=== PATIENT | female | born 1965 | race Two or more races ===

== ENCOUNTER 2017-04-13 01:31 | Inpatient (IN) | payer OTHER ==
[2017-04-13] MEDS: ASPIRIN ENTERIC COATED 325 MG TABLET.DR. PO (02:07)
[2017-04-13] MEDS: NITROGLYCERIN SUBLINGUAL 0.4 MG BOTTLE OF 25. SL (02:08)
[2017-04-13 02:17] LABS: ADD MAN DIFF? NO
[2017-04-13 02:22] LABS: BASO # 0.1 x10^3/uL (0.0-0.2); BASO % 1 % (0-3); EOS % 11 % (0-3); HEMATOCRIT 39.3 % (36.0-47.0); HEMOGLOBIN 12.7 g/dL (12.0-15.5); LYMPH # 4.1 x10^3/uL (1.0-4.8); LYMPH % 42 % (24-48); MEAN CORPUSCULAR HEMOGLOBIN 26 pg (25-35); MEAN CORPUSCULAR HGB CONC 32 g/dL (31-37); MEAN CORPUSCULAR VOLUME 81 fL (79-100); MONO # 0.9 x10^3/uL (0.0-1.1); MONO % 10 % (0-9); NEUT # 3.7 x10^3uL (1.8-7.7); NEUT % 37 % (31-73); PLATELET COUNT 309 x10^3/uL (140-400); RED BLOOD COUNT 4.84 x10^6/uL (3.50-5.40); RED CELL DISTRIBUTION WIDTH 15.3 % (11.5-14.5); WHITE BLOOD COUNT 9.9 x10^3/uL (4.0-11.0)
[2017-04-13 02:34] LABS: ANION GAP 9 (6-14); BLOOD UREA NITROGEN 7 mg/dL (7-20); BUN/CREATININE RATIO 10 (6-20); CALCIUM 9.3 mg/dL (8.5-10.1); CARBON DIOXIDE 28 mmol/L (21-32); CHLORIDE 102 mmol/L (98-107); CREATININE 0.7 mg/dL (0.6-1.0); GFR 88.6; GLUCOSE 101 mg/dL (70-99); POTASSIUM 3.6 mmol/L (3.5-5.1); SODIUM 139 mmol/L (136-145)
[2017-04-13 02:37] LABS: PARTIAL THROMBOPLASTIN TIME 25 SEC (24-38); PROTHROMBIN TIME PATIENT 12.3 SEC (11.7-14.0)
[2017-04-13 02:40] LABS: ALBUMIN 4.1 g/dL (3.4-5.0); ALK PHOS 136 U/L (46-116); ALT (SGPT) 29 U/L (14-59); AST (SGOT) 26 U/L (15-37); LIPASE 251 U/L (73-393); MAGNESIUM 2.2 mg/dL (1.8-2.4); TOTAL BILIRUBIN 0.2 mg/dL (0.2-1.0); TOTAL PROTEIN 8.1 g/dL (6.4-8.2)
[2017-04-13 02:46] LABS: NT-PRO BNP 29 pg/mL (0-124)
[2017-04-13 02:47] LABS: D-DIMER < 0.27 ug/mlFEU (0.00-0.50)
[2017-04-13 02:48] LABS: TROPONINI < 0.017 ng/mL (0.000-0.055)
[2017-04-13] MEDS ORDERED: ONDANSETRON PF 4 MG/2 ML VIAL. IV ×2 (03:30→08:45)
[2017-04-13] MEDS ORDERED: fentaNYL PF VIAL 100 MCG/2 ML VIAL IV (03:30)
[2017-04-13] MEDS: ONDANSETRON PF 4 MG/2 ML VIAL. IV (03:40)
[2017-04-13] MEDS: fentaNYL PF VIAL 100 MCG/2 ML VIAL IV (03:40)
[2017-04-13] MEDS ORDERED: ACETAMINOPHEN 500 MG TABLET PO (08:45)
[2017-04-13] MEDS: PANTOPRAZOLE 40 MG TABLET.DR. PO (09:51)
[2017-04-13 10:06] LABS: TROPONINI < 0.017 ng/mL (0.000-0.055)
[2017-04-13 11:19] LABS: CHOLESTEROL 168 mg/dL (0-200); HDLC 49 mg/dL (40-60); LDLC 84 mg/dL (0-100); NON-HDL CHOLESTEROL 119 mg/dL (0-129); TRIGLYCERIDES 173 mg/dL (0-150); VLDLC 35 mg/dL (0-40)
[2017-04-13 11:20] LABS: CHOLESTEROL/HDL RATIO 3.4
[2017-04-13 16:24] LABS: TROPONINI < 0.017 ng/mL (0.000-0.055)
== END 2017-04-13 19:00 | disposition home or self-care (01) | DRG 392 ==
LOC: ER 01:31 → 5 NORTH 02:55
DX: K21.9 Gastro-esophageal reflux disease without esophagitis (principal); E78.5 Hyperlipidemia, unspecified; R07.9 Chest pain, unspecified; G43.909 Migraine, unspecified, not intractable, without status migrainosus; I10 Essential (primary) hypertension; M19.90 Unspecified osteoarthritis, unspecified site; Z82.49 Family history of ischemic heart disease and other diseases of the circulatory system
CPT/HCPCS: 36415; 71045; 78452; 80053; 80061; 83690; 83735; 83880; 84484; 85025; 85379; 85610; 85730; 93005; 93017; 93306; 96374; 96375; 96376; 99285-25; A9500; J2405; J3010

== ENCOUNTER → 2017-05-12 | Outpatient (CLI) | payer OTHER | END | disposition home or self-care (01) | LOC: KCIC US 11:13 | DX: D25.9 Leiomyoma of uterus, unspecified (principal); N85.4 Malposition of uterus | CPT/HCPCS: 76830; 76856 ==

== ENCOUNTER 2017-06-25 08:13 | Observation (INO) | payer OTHER ==
[~2017-06-25 08:13] MED LIST: LIDOCAINE 1% PF 2 ML VIAL. ID; MORPHINE SULFATE 4 MG/ML DISP.SYRIN. IV; PROCHLORPERAZINE 10 MG/2 ML VIAL. IV; fentaNYL PF VIAL 100 MCG/2 ML VIAL IV
[2017-06-25] MEDS: IV RINGERS,LACTATED 1000ML 1,000 ML IV ×2 (08:48→21:26)
[2017-06-25 08:54] LABS: ADD MAN DIFF? NO
[2017-06-25 08:55] LABS: BASO # 0.1 x10^3/uL (0.0-0.2); BASO % 1 % (0-3); EOS # 0.7 x10^3/uL (0.0-0.7); EOS % 9 % (0-3); HEMATOCRIT 40.3 % (36.0-47.0); HEMOGLOBIN 13.2 g/dL (12.0-15.5); LYMPH # 2.3 x10^3/uL (1.0-4.8); LYMPH % 32 % (24-48); MEAN CORPUSCULAR HEMOGLOBIN 27 pg (25-35); MEAN CORPUSCULAR HGB CONC 33 g/dL (31-37); MEAN CORPUSCULAR VOLUME 81 fL (79-100); MONO # 0.6 x10^3/uL (0.0-1.1); MONO % 8 % (0-9); NEUT # 3.8 x10^3uL (1.8-7.7); NEUT % 51 % (31-73); PLATELET COUNT 246 x10^3/uL (140-400); RED BLOOD COUNT 4.95 x10^6/uL (3.50-5.40); RED CELL DISTRIBUTION WIDTH 16.4 % (11.5-14.5); WHITE BLOOD COUNT 7.4 x10^3/uL (4.0-11.0)
[2017-06-25] MEDS ORDERED: ESTROGENS, CONJ VAGINAL CREAM 30GM TUBE. (09:00)
[2017-06-25] MEDS ORDERED: IOHEXOL 300 MG/ML 100ML VIAL. (09:00)
[2017-06-25] MEDS ORDERED: LIDOCAINE 1% 20 ML VIAL. (09:00)
[2017-06-25] MEDS ORDERED: MIDAZOLAM HCL/PF 2 MG/2 ML VIAL. (09:23)
[2017-06-25] MEDS ORDERED: ROCURONIUM 100 MG/10 ML VIAL. (09:23)
[2017-06-25] MEDS ORDERED: NEOSTIGMINE METHYLSULFATE 5 MG/5 ML SYRINGE. (09:23)
[2017-06-25] MEDS ORDERED: fentaNYL PF VIAL 100 MCG/2 ML VIAL ×3 (09:23→13:06)
[2017-06-25] MEDS ORDERED: PROPOFOL 20 ML IV (09:24)
[2017-06-25] MEDS ORDERED: PHENYLEPHRINE in 0.9% NACL PF 1 MG/10 ML SYRINGE. IV (09:24)
[2017-06-25] MEDS ORDERED: DEXAMETHASONE SOD PHOS 20 MG/5 ML VIAL. (09:24)
[2017-06-25] MEDS ORDERED: LIDOCAINE 1% PF 5 ML VIAL. (09:24)
[2017-06-25] MEDS ORDERED: diphenhydrAMINE 50 MG/ML VIAL (09:24)
[2017-06-25] MEDS ORDERED: KETOROLAC 30 MG/ML INJ FOR OR. INJ (09:24)
[2017-06-25] MEDS ORDERED: GLYCOPYRROLATE 1 MG/5 ML VIAL. (09:24)
[2017-06-25] MEDS ORDERED: ONDANSETRON PF 4 MG/2 ML VIAL. (09:24)
[2017-06-25] MEDS ORDERED: FAMOTIDINE 20 MG/2 ML VIAL (09:24)
[2017-06-25] MEDS ORDERED: LIDOCAINE 2% PF Vial for OR 5 ML VIAL. (09:29)
[2017-06-25] MEDS ORDERED: KETAMINE HCL 500 MG/10 ML VIAL. (10:29)
[2017-06-25] MEDS ORDERED: LIDOCAINE 1%/EPI 1:100,000 20 ML VIAL. (10:45)
[2017-06-25] MEDS: LIDOCAINE 1%/EPI 1:100,000 20 ML VIAL. ×3 (11:05→12:04)
[2017-06-25] MEDS ORDERED: ceFAZolin 2GM PREMIX 2 GM/50 ML BAG IV (12:00)
[2017-06-25] MEDS: ESTROGENS, CONJ VAGINAL CREAM 30GM TUBE. VG (12:05)
[2017-06-25] MEDS ORDERED: SEVOFLURANE 61 TO 120 MINUTES. IH (12:16)
[2017-06-25] MEDS ORDERED: diphenhydrAMINE 50 MG/ML VIAL IV (12:45)
[2017-06-25] MEDS ORDERED: ZOLPIDEM 5 MG TABLET. PO (12:45)
[2017-06-25] MEDS ORDERED: PROCHLORPERAZINE 10 MG/2 ML VIAL. IV (12:45)
[2017-06-25] MEDS ORDERED: 0.9 % SODIUM CHLORIDE 10 ML DISP.SYRIN. IV (12:45)
[2017-06-25] MEDS ORDERED: SIMETHICONE 80 MG TAB.CHEW PO (12:45)
[2017-06-25] MEDS ORDERED: DEXTROSE 50% 25 GM / 50ML DISP.SYRIN. IV (12:45)
[2017-06-25] MEDS ORDERED: CALCIUM CARBONATE 500 MG TAB.CHEW PO (12:45)
[2017-06-25] MEDS ORDERED: diphenhydrAMINE HCL 25 MG CAPSULE PO (12:45)
[2017-06-25] MEDS ORDERED: ONDANSETRON PF 4 MG/2 ML VIAL. IV (12:45)
[2017-06-25] MEDS: fentaNYL PF VIAL 100 MCG/2 ML VIAL IV ×3 (13:11→15:13)
[2017-06-25] MEDS: oxyCODONE/APAP 5/325 1 TAB TABLET PO (17:06)
[2017-06-25] MEDS: KETOROLAC 30 MG/ML INJ. IV (18:34)
[2017-06-25] MEDS: ONDANSETRON PF 4 MG/2 ML VIAL. IV (20:10)
[2017-06-25] MEDS: GABAPENTIN 300 MG CAPSULE. PO ×2 (20:43→22:00)
[2017-06-26] MEDS: KETOROLAC 30 MG/ML INJ. IV (00:42)
[2017-06-26 04:56] LABS: ADD MAN DIFF? NO
[2017-06-26 05:00] LABS: BASO % 0 % (0-3); EOS % 0 % (0-3); HEMATOCRIT 34.3 % (36.0-47.0); HEMOGLOBIN 11.4 g/dL (12.0-15.5); LYMPH % 9 % (24-48); MEAN CORPUSCULAR HEMOGLOBIN 27 pg (25-35); MEAN CORPUSCULAR HGB CONC 33 g/dL (31-37); MEAN CORPUSCULAR VOLUME 82 fL (79-100); MONO # 0.8 x10^3/uL (0.0-1.1); MONO % 7 % (0-9); NEUT # 9.3 x10^3uL (1.8-7.7); NEUT % 84 % (31-73); PLATELET COUNT 237 x10^3/uL (140-400); RED BLOOD COUNT 4.19 x10^6/uL (3.50-5.40); RED CELL DISTRIBUTION WIDTH 15.9 % (11.5-14.5); WHITE BLOOD COUNT 11.1 x10^3/uL (4.0-11.0)
[2017-06-26] MEDS: GABAPENTIN 300 MG CAPSULE. PO ×2 (06:03→14:00)
[2017-06-26] MEDS: oxyCODONE/APAP 5/325 1 TAB TABLET PO ×3 (06:04→14:33)
== END 2017-06-26 20:35 | disposition home or self-care (01) ==
LOC: SURG 08:13 → 3 NORTH 12:32
DX: D25.9 Leiomyoma of uterus, unspecified (principal); N39.3 Stress incontinence (female) (male); N81.3 Complete uterovaginal prolapse; N84.0 Polyp of corpus uteri; N80.0 Endometriosis of uterus
CPT/HCPCS: 36415; 85025; 86850; 86900; 86901; 88309; 96374; 96375; 96376; A7015; G0378; G0379; J0690; J1100; J1200; J1885; J2250; J2370; J2405; J2704; J2710; J3010; J3490; J7030; J7120; Q9967; S0028

== ENCOUNTER 2017-06-29 23:11 | Emergency (ER) | payer OTHER | END 2017-06-29 23:50 | disposition home or self-care (01) | LOC: ER 23:50 | DX: K59.03 Drug induced constipation (principal); T40.2X5A Adverse effect of other opioids, initial encounter; K21.9 Gastro-esophageal reflux disease without esophagitis; Y92.89 Other specified places as the place of occurrence of the external cause | CPT/HCPCS: 99283 ==

== ENCOUNTER 2019-12-18 13:49 | Inpatient (IN) | payer OTHER ==
[~2019-12-18] VITALS: Ht 160 cm; Wt 73.0 kg
[~2019-12-18 13:49] MED LIST changes: +AMOX500C PO; +DOCU-109 PO; +IBUP-1060 PO; -LIDOCAINE 1% PF 2 ML VIAL. ID; +MAGN296S68 PO; -MORPHINE SULFATE 4 MG/ML DISP.SYRIN. IV; +NA P133E2 RC; +OXYC1TAB7 PO; +PANT20TA2 PO; +POLY17PO29 PO; -PROCHLORPERAZINE 10 MG/2 ML VIAL. IV; -fentaNYL PF VIAL 100 MCG/2 ML VIAL IV
[2019-12-18 14:33] LABS: BILIRUBIN,URINE NEGATIVE (NEG); CLARITY,URINE CLEAR; COLOR,URINE YELLOW; NITRITE,URINE NEGATIVE (NEG); PROTEIN,URINE NEGATIVE (NEG-TRACE); UROBILINOGEN,URINE 0.2 mg/dL (0.2 mg/dL)
[2019-12-18 14:45] LABS: BACTERIA,URINE FEW /HPF (0-FEW); WBC,URINE >40 /HPF (0-4)
[2019-12-18 14:46] LABS: RBC,URINE OCC /HPF (0-2)
[2019-12-18 14:52] LABS: BASO % 0 % (0-3); EOS # 0.1 x10^3/uL (0.0-0.7); EOS % 1 % (0-3); HEMOGLOBIN 13.4 g/dL (12.0-15.5); LYMPH # 1.2 x10^3/uL (1.0-4.8); LYMPH % 13 % (24-48); MEAN CORPUSCULAR HEMOGLOBIN 30 pg (25-35); MEAN CORPUSCULAR HGB CONC 34 g/dL (31-37); MEAN CORPUSCULAR VOLUME 88 fL (79-100); MONO # 0.7 x10^3/uL (0.0-1.1); MONO % 7 % (0-9); NEUT # 7.2 x10^3/uL (1.8-7.7); NEUT % 78 % (31-73); PLATELET COUNT 263 x10^3/uL (140-400); RED BLOOD COUNT 4.42 x10^6/uL (3.50-5.40); RED CELL DISTRIBUTION WIDTH 15.5 % (11.5-14.5); WHITE BLOOD COUNT 9.3 x10^3/uL (4.0-11.0)
--- NOTE | 2019-12-18 14:59 | PHYS DOC ---
Past Medical History Past Medical History: GERD Past Surgical History: Other Additional Past Surgical Histo: HERNIA REPAIR Smoking Status: Never Smoker Alcohol Use: None Drug Use: None General Adult EDM: Chief Complaint: ABDOMINAL PAIN HPI: HPI: History obtained from patient. Son was uses customer greeter at bedside with permission from patient. Patient is a 51-year-old female past medical history significant for dyspepsia, rheumatoid arthritis who presents with chief compla int of epigastric pain. States pain started suddenly 4 hours prior to arrival. States pain is sharp and radiates through to her back. She states that she has not been able to eat food today. She notes multiple episodes of nonbloody nonbilious emesis. Does note a history of hysterectomy. States she is had occasional discomfort with eating food in the past. Denies any known history of gallbladder issues. Denies chest pain or shortness breath. Denies syncope. Denies fevers. Denies any urinary symptoms including dysuria, hematuria, or increased urge to void. Denies low back pain. Denies vaginal bleeding or discharge. No other complaints. Review of Systems: Review of Systems: Constitutional: Denies fever or chills. [] Eyes: Denies change in visual acuity. [] HENT: Denies nasal congestion or sore throat. [] Respiratory: Denies cough or shortness of breath. [] Cardiovascular: Denies chest pain or edema. [] GI: Positive for abdominal pain and vomiting : Denies dysuria. [] Musculoskeletal: Denies back pain or joint pain. [] Integument: Denies rash. [] Neurologic: Denies headache, focal weakness or sensory changes. [] Endocrine: Denies polyuria or polydipsia. [] Lymphatic: Denies swollen glands. [] Psychiatric: Denies depression or anxiety. [] Heart Score: Risk Factors: Risk Factors: DM, Current or recent (<one month) smoker, HTN, HLP, family history of CAD, obesity. Risk Scores: Score 0 - 3: 2.5% MACE over next 6 weeks - Discharge Home Score 4 - 6: 20.3% MACE over next 6 weeks - Admit for Clinical Observation Score 7 - 10: 72.7% MACE over next 6 weeks - Early Invasive Strategies Current Medications: Current Medications Medications (Trade) Dose Ordered Sig/Gary Start Time Stop Time Status Last Admin Dose Admin Famotidine (Pepcid Vial) 20 mg 1X ONCE 12/18/19 15:00 12/18/19 15:01 Morphine Sulfate (Morphine Sulfate) 4 mg 1X ONCE 12/18/19 15:00 12/18/19 15:01 Ondansetron HCl (Zofran) 4 mg 1X ONCE 12/18/19 15:00 12/18/19 15:01 Allergies: Allergies: Allergies Coded Allergies Type Severity Reaction Last Updated Verified No Known Drug Allergies 06/25/17 No Physical Exam: PE: Constitutional: Appears uncomfortable HENT: Normocephalic, atraumatic, bilateral external ears normal, oropharynx moist, no oral exudates, nose normal. [] Eyes: PERRLA, EOMI, conjunctiva normal, no discharge. [] Neck: Normal range of motion, no tenderness, supple, no stridor. [] Cardiovascular:Heart rate regular rhythm, no murmur [] Lungs & Thorax: Bilateral breath sounds clear to auscultation [] Abdomen: Moderate reproducible right upper quadrant epigastric tenderness to palpation. Skin: Warm, dry, no erythema, no rash. [] Back: No tenderness, no CVA tenderness. [] Extremities: No tenderness, no cyanosis, no clubbing, ROM intact, no edema. [] Neurologic: Alert and oriented X 3, normal motor function, normal sensory function, no focal deficits noted. [] Psychologic: Affect normal, judgement normal, mood normal. [] Current Patient Data: Labs: Laboratory Tests Test 12/18/19 14:00 12/18/19 14:40 Urine Collection Type Unknown Urine Color Yellow Urine Clarity Clear Urine pH 5.0 (<5.0-8.0) Urine Specific [place] 1.020 (1.000-1.030) Urine Protein Negative mg/dL (NEG-TRACE) Urine Glucose (UA) Negative mg/dL (NEG) Urine Ketones (Stick) Negative mg/dL (NEG) Urine Blood Negative (NEG) Urine Nitrite Negative (NEG) Urine Bilirubin Negative (NEG) Urine Urobilinogen Dipstick 0.2 mg/dL (0.2 mg/dL) Urine Leukocyte Esterase Large (NEG) Urine RBC Occ /HPF (0-2) Urine WBC >40 /HPF (0-4) Urine Bacteria Few /HPF (0-FEW) Urine Mucus Mod /LPF White Blood Count 9.3 x10^3/uL (4.0-11.0) Red Blood Count 4.42 x10^6/uL (3.50-5.40) Hemoglobin 13.4 g/dL (12.0-15.5) Hematocrit 39.0 % (36.0-47.0) Mean Corpuscular Volume 88 fL (79-100) Mean Corpuscular Hemoglobin 30 pg (25-35) Mean Corpuscular Hemoglobin Concent 34 g/dL (31-37) Red Cell Distribution Width 15.5 % (11.5-14.5) H Platelet Count 263 x10^3/uL (140-400) Neutrophils (%) (Auto) 78 % (31-73) H Lymphocytes (%) (Auto) 13 % (24-48) L Monocytes (%) (Auto) 7 % (0-9) Eosinophils (%) (Auto) 1 % (0-3) Basophils (%) (Auto) 0 % (0-3) Neutrophils # (Auto) 7.2 x10^3/uL (1.8-7.7) Lymphocytes # (Auto) 1.2 x10^3/uL (1.0-4.8) Monocytes # (Auto) 0.7 x10^3/uL (0.0-1.1) Eosinophils # (Auto) 0.1 x10^3/uL (0.0-0.7) Basophils # (Auto) 0.0 x10^3/uL (0.0-0.2) Laboratory Tests 12/18/19 14:40 EKG: EKG: [] Radiology/Procedures: Radiology/Procedures: [facility] [address] [place] [address] IMAGING REPORT Signed PATIENT: JOVANY RAMONCOUNT: [id number] : 1965 LOCATION: ER AGE: 54 SEX: F EXAM STATUS: REG ER ORD. PHYSICIAN: COLLEEN GILMAN DO REASON: RUQ pain; Nausea/Vomitting PROCEDURE: ABDOMEN LTD ABDOMEN LTD INDICATION: Reason: RUQ pain; Nausea/Vomitting / Spl. Instructions: / History: COMPARISON: None. TECHNIQUE: Limited transverse and longitudinal grayscale images of the right upper quadrant with color and pulsed doppler utilized as appropriate. FINDINGS: The liver demonstrates normal echogenicity without focal lesions. The liver measures 14.1 cm. The portal vein is patent with normal antegrade flow. Well-distended gallbladder with multiple prominent gallstones. No wall thickening or pericholecystic fluid. Sonographic Leon's sign is reported as present. No intrahepatic or extrahepatic biliary dilatation. The common bile duct measures 0.3 cm. The visualized portions of the pancreas demonstrate normal echogenicity without focal lesions. The right kidney has normal echogenicity and measures 9.3 cm. No hydronephrosis, shadowing stones or suspicious masses seen. No ascites or fluid collections. The aorta and IVC are normal diameter where visualized. IMPRESSION: Well-distended gallbladder with multiple gallstones. Although the sonographic Leon's sign is reported as present, there is no wall thickening or pericholecystic fluid. Correlate with laboratory values. Normal caliber common bile duct. Electronically signed by: Chetan Krueger MD (12/18/2019 3:28 PM) [facility] DICTATED and SIGNED BY: CHETAN KRUEGER MD DATE: 12/18/19 1528 [] Course & Med Decision Making: Course & Med Decision Making Pertinent Labs and Imaging studies reviewed. (See chart for details) [] Patient is a 54-year-old female who presents with chief complaint of epi gastric and right upper quadrant abdominal discomfort. Imaging does reveal a distended gallbladder with multiple gallstones. No signs of pericholecystic fluid or gallbladder wall thickening. Common bile duct also measures normal. Positive Leon sign sonographically. Labs do not show leukocytosis or elevated LFTs. However, patient does appear significantly uncomfortable. She is likely experiencing severe symptomatic cholelithiasis. I do feel she would benefit from hospitalization for further pain and nausea control as well as potential surgical evaluation for cholecystectomy. Patient agreeable to hospitalization. Json Disclaimer: Shaun Disclaimer: This electronic medical record was generated, in whole or in part, using a voice recognition dictation system. Departure Departure Impression: Primary Impression: Symptomatic cholelithiasis Disposition: ADMITTED INPT THIS HOSP Condition: STABLE Referrals: NO PCP (PCP) COLLEEN GILMAN DO Dec 18, 2019 14:58
[2019-12-18] MEDS ORDERED: FAMOTIDINE 20 MG/2 ML VIAL IVP ONE (15:00)
[2019-12-18] MEDS ORDERED: ONDANSETRON PF 4 MG/2 ML VIAL. IVP ONE (15:00)
[2019-12-18] MEDS ORDERED: MORPHINE SULFATE 4 MG/ML VIAL. IV ONE (15:00)
[2019-12-18 15:04] LABS: CALCIUM 9.1 mg/dL (8.5-10.1); CREATININE 0.9 mg/dL (0.6-1.0); GFR 65.5; POTASSIUM 3.9 mmol/L (3.5-5.1)
[2019-12-18 15:10] LABS: ALBUMIN 4.1 g/dL (3.4-5.0); ALBUMIN/GLOBULIN RATIO 1.1 (1.0-1.7); TOTAL BILIRUBIN 0.4 mg/dL (0.2-1.0); TOTAL PROTEIN 7.8 g/dL (6.4-8.2)
[2019-12-18] MEDS ORDERED: ceFAZolin SODIUM IV Push 1 GM VIAL. IVP ONE (15:15)
[2019-12-18] MEDS ORDERED: HYDROmorphone 2 MG/ML VIAL IV ONE (15:30)
--- NOTE | 2019-12-18 15:31 | RAD ---
ABDOMEN LTD INDICATION: Reason: RUQ pain; Nausea/Vomitting / Spl. Instructions: / History: COMPARISON: None. TECHNIQUE: Limited transverse and longitudinal grayscale images of the right upper quadrant with color and pulsed doppler utilized as appropriate. FINDINGS: The liver demonstrates normal echogenicity without focal lesions. The liver measures 14.1 cm. The portal vein is patent with normal antegrade flow. Well-distended gallbladder with multiple prominent gallstones. No wall thickening or pericholecystic fluid. Sonographic Leon's sign is reported as present. No intrahepatic or extrahepatic biliary dilatation. The common bile duct measures 0.3 cm. The visualized portions of the pancreas demonstrate normal echogenicity without focal lesions. The right kidney has normal echogenicity and measures 9.3 cm. No hydronephrosis, shadowing stones or suspicious masses seen. No ascites or fluid collections. The aorta and IVC are normal diameter where visualized. IMPRESSION: Well-distended gallbladder with multiple gallstones. Although the sonographic Leon's sign is reported as present, there is no wall thickening or pericholecystic fluid. Correlate with laboratory values. Normal caliber common bile duct. Electronically signed by: Frank Krueger MD (12/18/2019 3:28 PM) [facility]
--- NOTE | 2019-12-18 16:13 | PDOC1 ---
History and Physical Date of Admission Date of Admission DATE: 12/18/19 TIME: 16:12 Identification/Chief Complaint Chief Complaint seen in er with symptomatic cholelithiasis 51-year-old female past medical history significant for dyspepsia, rheumatoid arthritis who presents with chief complaint of epigastric pain. States pain started suddenly 4 hours prior to arrival. States pain is sharp and radiates through to her back. has not been able to eat food today. She notes multiple episodes of nonbloody nonbilious emesis. States she is had occasional discomfort with eating fatty food in the past. Denies any known history of gallbladder issues. Denies chest pain or shortness breath. Denies syncope. Denies fevers Past Medical History Cardiovascular: Hyperlipidemia Pulmonary: No pertinent hx CENTRAL NERVOUS SYSTEM: Migraine GI: GERD Heme/Onc: No pertinent hx Hepatobiliary: No pertinent hx Psych: No pertinent hx Musculoskeletal: Osteoarthritis Rheumatologic: No pertinent hx Infectious disease: No pertinent hx Renal/: No pertinent hx Endocrine: No pertinent hx Past Surgical History Past Surgical History: Hernia Repair Family History Family History: Coronary Artery Disease, Hypertension Social History Smoke: No ALCOHOL: none Drugs: None Current Problem List Problem List Problems Medical Problems: (1) Symptomatic cholelithiasis Status: Acute Current Medications Current Medications Current Medications Famotidine (Pepcid Vial) 20 mg 1X ONCE IVP Last administered on 12/18/19at 15:05; Start 12/18/19 at 15:00; Stop 12/18/19 at 15:01; Status DC Morphine Sulfate (Morphine Sulfate) 4 mg 1X ONCE IV Last administered on 12/18/19at 15:05; Start 12/18/19 at 15:00; Stop 12/18/19 at 15:01; Status DC Ondansetron HCl (Zofran) 4 mg 1X ONCE IVP Last administered on 12/18/19at 15:04; Start 12/18/19 at 15:00; Stop 12/18/19 at 15:01; Status DC Cefazolin Sodium (Ancef) 1 gm 1X ONCE IVP Last administered on 12/18/19at 15:51; Start 12/18/19 at 15:15; Stop 12/18/19 at 15:16; Status DC Hydromorphone HCl (Dilaudid) 1 mg 1X ONCE IV Last administered on 12/18/19at 15:51; Start 12/18/19 at 15:30; Stop 12/18/19 at 15:31; Status DC Ondansetron HCl (Zofran) 4 mg PRN Q8HRS PRN IV NAUSEA/VOMITING; Start 12/18/19 at 16:15; Stop 12/19/19 at 16:14 Morphine Sulfate (Morphine Sulfate) 4 mg PRN Q2HR PRN IV PAIN; Start 12/18/19 at 16:15; Stop 12/19/19 at 16:14 Active Scripts Active Miralax (Polyethylene Glycol 3350) 17 Gm Powd.pack 1 Packet PO DAILY Fleet Enema (Na Phos,M-B/Na Phos,Di-Ba) 133 Ml Enema 1 Each RC ONCE Magnesium Citrate 296 Ml Solution 296 Ml PO ONCE Ibuprofen 800 Mg Tablet 800 Mg PO PRN Q6HRS PRN Colace (Docusate Sodium) 100 Mg Capsule 100 Mg PO BID Oxycodone-Acetaminophen 5-325 (Oxycodone Hcl/Acetaminophen) 1 Each Tablet 2 Tab PO PRN Q4HRS PRN Allergies Allergies: Coded Allergies: No Known Drug Allergies (Unverified , 06/25/17) ROS Review of System Constitutional: Denies fever or chills. [] Eyes: Denies change in visual acuity. [] HENT: Denies nasal congestion or sore throat. [] Respiratory: Denies cough or shortness of breath. [] Cardiovascular: Denies chest pain or edema. [] GI: Positive for abdominal pain and vomiting : Denies dysuria. [] Musculoskeletal: Denies back pain or joint pain. [] Integument: Denies rash. [] Neurologic: Denies headache, focal weakness or sensory changes. [] Endocrine: Denies polyuria or polydipsia. [] Lymphatic: Denies swollen glands. [] Psychiatric: Denies depression or anxiety. [] 14 PT ROS OTHERWISE NEG Physical Exam Physical Exam Constitutional: Appears uncomfortable HENT: Normocephalic, atraumatic, bilateral external ears normal, oropharynx moist, no oral exudates, nose normal. [] Eyes: PERRLA, EOMI, conjunctiva normal, no discharge. [] Neck: Normal range of motion, no tenderness, supple, no stridor. [] Cardiovascular:Heart rate regular rhythm, no murmur [] Lungs & Thorax: Bilateral breath sounds clear to auscultation [] Abdomen: Moderate reproducible right upper quadrant epigastric tenderness to palpation. Skin: Warm, dry, no erythema, no rash. [] Back: No tenderness, no CVA tenderness. [] Extremities: No tenderness, no cyanosis, no clubbing, ROM intact, no edema. [] Neurologic: Alert and oriented X 3, normal motor function, normal sensory function, no focal deficits noted. [] Psychologic: Affect normal, judgement normal, mood normal. [] General: Alert, Oriented X3, Cooperative HEENT: Atraumatic, Mucous membr. moist/pink Lungs: Clear to auscultation, Normal air movement Heart: RRR, no gallops Breasts: Not examined Abdomen: No masses Rectal Exam: not examined Extremities: No cyanosis Skin: No significant lesion Neuro: Normal speech, Sensation intact, Cranial nerves 3-12 NL Psych/Mental Status: Mental status NL, Mood NL Labs Labs Laboratory Tests Test 12/18/19 14:00 12/18/19 14:40 Urine Collection Type Unknown Urine Color Yellow Urine Clarity Clear Urine pH 5.0 (<5.0-8.0) Urine Specific [place] 1.020 (1.000-1.030) Urine Protein Negative mg/dL (NEG-TRACE) Urine Glucose (UA) Negative mg/dL (NEG) Urine Ketones (Stick) Negative mg/dL (NEG) Urine Blood Negative (NEG) Urine Nitrite Negative (NEG) Urine Bilirubin Negative (NEG) Urine Urobilinogen Dipstick 0.2 mg/dL (0.2 mg/dL) Urine Leukocyte Esterase Large (NEG) Urine RBC Occ /HPF (0-2) Urine WBC >40 /HPF (0-4) Urine Bacteria Few /HPF (0-FEW) Urine Mucus Mod /LPF White Blood Count 9.3 x10^3/uL (4.0-11.0) Red Blood Count 4.42 x10^6/uL (3.50-5.40) Hemoglobin 13.4 g/dL (12.0-15.5) Hematocrit 39.0 % (36.0-47.0) Mean Corpuscular Volume 88 fL (79-100) Mean Corpuscular Hemoglobin 30 pg (25-35) Mean Corpuscular Hemoglobin Concent 34 g/dL (31-37) Red Cell Distribution Width 15.5 % (11.5-14.5) Platelet Count 263 x10^3/uL (140-400) Neutrophils (%) (Auto) 78 % (31-73) Lymphocytes (%) (Auto) 13 % (24-48) Monocytes (%) (Auto) 7 % (0-9) Eosinophils (%) (Auto) 1 % (0-3) Basophils (%) (Auto) 0 % (0-3) Neutrophils # (Auto) 7.2 x10^3/uL (1.8-7.7) Lymphocytes # (Auto) 1.2 x10^3/uL (1.0-4.8) Monocytes # (Auto) 0.7 x10^3/uL (0.0-1.1) Eosinophils # (Auto) 0.1 x10^3/uL (0.0-0.7) Basophils # (Auto) 0.0 x10^3/uL (0.0-0.2) Sodium Level 140 mmol/L (136-145) Potassium Level 3.9 mmol/L (3.5-5.1) Chloride Level 103 mmol/L (98-107) Carbon Dioxide Level 28 mmol/L (21-32) Anion Gap 9 (6-14) Blood Urea Nitrogen 10 mg/dL (7-20) Creatinine 0.9 mg/dL (0.6-1.0) Estimated GFR (Cockcroft-Gault) 65.5 BUN/Creatinine Ratio 11 (6-20) Glucose Level 118 mg/dL (70-99) Calcium Level 9.1 mg/dL (8.5-10.1) Total Bilirubin 0.4 mg/dL (0.2-1.0) Aspartate Amino Transf (AST/SGOT) 21 U/L (15-37) Alanine Aminotransferase (ALT/SGPT) 26 U/L (14-59) Alkaline Phosphatase 115 U/L (46-116) Total Protein 7.8 g/dL (6.4-8.2) Albumin 4.1 g/dL (3.4-5.0) Albumin/Globulin Ratio 1.1 (1.0-1.7) Lipase 107 U/L (73-393) Laboratory Tests Test 12/18/19 14:00 12/18/19 14:40 Urine Collection Type Unknown Urine Color Yellow Urine Clarity Clear Urine pH 5.0 (<5.0-8.0) Urine Specific [place] 1.020 (1.000-1.030) Urine Protein Negative mg/dL (NEG-TRACE) Urine Glucose (UA) Negative mg/dL (NEG) Urine Ketones (Stick) Negative mg/dL (NEG) Urine Blood Negative (NEG) Urine Nitrite Negative (NEG) Urine Bilirubin Negative (NEG) Urine Urobilinogen Dipstick 0.2 mg/dL (0.2 mg/dL) Urine Leukocyte Esterase Large (NEG) Urine RBC Occ /HPF (0-2) Urine WBC >40 /HPF (0-4) Urine Bacteria Few /HPF (0-FEW) Urine Mucus Mod /LPF White Blood Count 9.3 x10^3/uL (4.0-11.0) Red Blood Count 4.42 x10^6/uL (3.50-5.40) Hemoglobin 13.4 g/dL (12.0-15.5) Hematocrit 39.0 % (36.0-47.0) Mean Corpuscular Volume 88 fL (79-100) Mean Corpuscular Hemoglobin 30 pg (25-35) Mean Corpuscular Hemoglobin Concent 34 g/dL (31-37) Red Cell Distribution Width 15.5 % (11.5-14.5) Platelet Count 263 x10^3/uL (140-400) Neutrophils (%) (Auto) 78 % (31-73) Lymphocytes (%) (Auto) 13 % (24-48) Monocytes (%) (Auto) 7 % (0-9) Eosinophils (%) (Auto) 1 % (0-3) Basophils (%) (Auto) 0 % (0-3) Neutrophils # (Auto) 7.2 x10^3/uL (1.8-7.7) Lymphocytes # (Auto) 1.2 x10^3/uL (1.0-4.8) Monocytes # (Auto) 0.7 x10^3/uL (0.0-1.1) Eosinophils # (Auto) 0.1 x10^3/uL (0.0-0.7) Basophils # (Auto) 0.0 x10^3/uL (0.0-0.2) Sodium Level 140 mmol/L (136-145) Potassium Level 3.9 mmol/L (3.5-5.1) Chloride Level 103 mmol/L (98-107) Carbon Dioxide Level 28 mmol/L (21-32) Anion Gap 9 (6-14) Blood Urea Nitrogen 10 mg/dL (7-20) Creatinine 0.9 mg/dL (0.6-1.0) Estimated GFR (Cockcroft-Gault) 65.5 BUN/Creatinine Ratio 11 (6-20) Glucose Level 118 mg/dL (70-99) Calcium Level 9.1 mg/dL (8.5-10.1) Total Bilirubin 0.4 mg/dL (0.2-1.0) Aspartate Amino Transf (AST/SGOT) 21 U/L (15-37) Alanine Aminotransferase (ALT/SGPT) 26 U/L (14-59) Alkaline Phosphatase 115 U/L (46-116) Total Protein 7.8 g/dL (6.4-8.2) Albumin 4.1 g/dL (3.4-5.0) Albumin/Globulin Ratio 1.1 (1.0-1.7) Lipase 107 U/L (73-393) Images Images ABDOMEN LTD INDICATION: Reason: RUQ pain; Nausea/Vomitting / Spl. Instructions: / History: COMPARISON: None. TECHNIQUE: Limited transverse and longitudinal grayscale images of the right upper quadrant with color and pulsed doppler utilized as appropriate. FINDINGS: The liver demonstrates normal echogenicity without focal lesions. The liver measures 14.1 cm. The portal vein is patent with normal antegrade flow. Well-distended gallbladder with multiple prominent gallstones. No wall thickening or pericholecystic fluid. Sonographic Leon's sign is reported as present. No intrahepatic or extrahepatic biliary dilatation. The common bile duct measures 0.3 cm. The visualized portions of the pancreas demonstrate normal echogenicity without focal lesions. The right kidney has normal echogenicity and measures 9.3 cm. No hydronephrosis, shadowing stones or suspicious masses seen. No ascites or fluid collections. The aorta and IVC are normal diameter where visualized. IMPRESSION: Well-distended gallbladder with multiple gallstones. Although the sonographic Leon's sign is reported as present, there is no wall thickening or pericholecystic fluid. Correlate with laboratory values. Normal caliber common bile duct. Electronically signed by: Chetan Merchant MD (12/18/2019 3:28 PM) [facility] DICTATED and SIGNED BY: CHETAN MERCHANT MD DATE: 12/18/19 1528 VTE Prophylaxis Ordered VTE Prophylaxis Devices: Yes VTE Pharmacological Prophylaxi: Yes Assessment/Plan Assessment/Plan =Impression: Symptomatic cholelithiasis Well-distended gallbladder with multiple gallstones. , sonographic Leon's sign is reported as present, there is no wall thickening or pericholecystic fluid HX HYPERLIPIDEMIA GERD PROBABLE UTI plan ADMITTED npo gen surgery consult iv fluid support iv pain control dvt prophylaxis IV ROCEPHIN 1 GM Q 24 HRS D/W ER Justifications for Admission Other Justification KHADAR ROMERO MD Dec 18, 2019 16:13
[2019-12-18] MEDS ORDERED: MORPHINE SULFATE 4 MG/ML VIAL. IV PRN (16:15)
[2019-12-18] MEDS ORDERED: ONDANSETRON PF 4 MG/2 ML VIAL. IV PRN (16:15)
[2019-12-18] MEDS ORDERED: LORazepam 0.5 MG TABLET PO PRN (17:00)
[2019-12-18] MEDS ORDERED: 0.9 % SODIUM CHLORIDE 10 ML DISP.SYRIN. IV PRN (17:00)
[2019-12-18] MEDS ORDERED: DOCUSATE SODIUM 100 MG CAPSULE. PO PRN (17:00)
[2019-12-18] MEDS ORDERED: ALBUTEROL SULFATE 2.5 MG/3 ML NEBU. NEB PRN (17:00)
[2019-12-18] MEDS ORDERED: ZOLPIDEM 5 MG TABLET. PO PRN (17:00)
[2019-12-18] MEDS ORDERED: guaiFENesin ORAL 200 MG/10 ML LIQUID. PO PRN (17:00)
[2019-12-18] MEDS ORDERED: SODIUM PHOSPHATES 19/7GM 133 ML ENEMA. PR PRN (17:00)
[2019-12-18] MEDS ORDERED: ACETAMINOPHEN 650 MG SUPP.RECT. PR PRN (17:00)
[2019-12-18] MEDS: HYDROmorphone 2 MG/ML VIAL IV PRN (17:56)
[2019-12-18] MEDS: IV NORMAL SALINE 1000ML BAG 1,000 ML IV SCH (17:56)
[2019-12-18] MEDS: ONDANSETRON PF 4 MG/2 ML VIAL. IV PRN (17:56)
--- NOTE | 2019-12-18 18:15 | NUR ---
Patient arrived to room 416 from the ED. Her son is present and will stay to help interpret for service assistant nurse. Patient is sleeping soundly, but can be awakened. IV fluids running.
[2019-12-18 19:30] VITALS: BP 142/79
[2019-12-18] MEDS: cefTRIAXone IV Push 1 GM VIAL. IVP SCH (21:15)
[2019-12-18] MEDS: ENOXAPARIN 40 MG/0.4 ML SYRINGE. SQ SCH (21:17)
[2019-12-18] MEDS: DOCUSATE SODIUM 100 MG CAPSULE. PO SCH (21:25)
[2019-12-18 23:23] VITALS: BP 142/73
[2019-12-19 03:04] VITALS: BP 143/74
[2019-12-19] MEDS: IV NORMAL SALINE 1000ML BAG 1,000 ML IV SCH ×3 (03:34→22:39)
[2019-12-19] MEDS: HYDROmorphone 2 MG/ML VIAL IV PRN ×3 (03:41→22:36)
[2019-12-19 04:41] LABS: BASO % 0 % (0-3); EOS % 0 % (0-3); HEMATOCRIT 37.4 % (36.0-47.0); HEMOGLOBIN 12.5 g/dL (12.0-15.5); LYMPH # 0.9 x10^3/uL (1.0-4.8); LYMPH % 8 % (24-48); MEAN CORPUSCULAR HEMOGLOBIN 30 pg (25-35); MEAN CORPUSCULAR HGB CONC 34 g/dL (31-37); MEAN CORPUSCULAR VOLUME 89 fL (79-100); MONO # 0.7 x10^3/uL (0.0-1.1); MONO % 7 % (0-9); NEUT # 8.7 x10^3/uL (1.8-7.7); NEUT % 84 % (31-73); PLATELET COUNT 249 x10^3/uL (140-400); RED BLOOD COUNT 4.18 x10^6/uL (3.50-5.40); RED CELL DISTRIBUTION WIDTH 15.8 % (11.5-14.5); WHITE BLOOD COUNT 10.4 x10^3/uL (4.0-11.0)
[2019-12-19 04:55] LABS: CALCIUM 8.7 mg/dL (8.5-10.1); CREATININE 0.7 mg/dL (0.6-1.0); GFR 87.5; POTASSIUM 3.7 mmol/L (3.5-5.1)
[2019-12-19] MEDS: ONDANSETRON PF 4 MG/2 ML VIAL. IV PRN ×2 (06:09→19:00)
[2019-12-19 07:00] VITALS: BP 127/73
--- NOTE | 2019-12-19 08:39 | PDOC2 ---
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 Pain was upper abdomen with radiation to her back, up chest. Thought was her acid reflux but had no improvement. Pain is currently improved, but vomiting this AM. No hx of cholelithiasis that patient knows of. No constipation or diarrhea. Past Medical History Cardiovascular: Hyperlipidemia Pulmonary: No pertinent hx CENTRAL NERVOUS SYSTEM: Migraine GI: GERD Heme/Onc: No pertinent hx Hepatobiliary: No pertinent hx Psych: No pertinent hx Musculoskeletal: Osteoarthritis Rheumatologic: Rheumatoid arthritis Infectious disease: No pertinent hx Renal/: No pertinent hx Endocrine: No pertinent hx Past Surgical History Past Surgical History: Hernia Repair, Hysterectomy Family History Family History: Coronary Artery Disease, Hypertension Social History No ALCOHOL: none Drugs: None Current Problem List Problem List Problems Medical Problems: (1) Symptomatic cholelithiasis Status: Acute Current Medications Current Medications Current Medications Famotidine (Pepcid Vial) 20 mg 1X ONCE IVP Last administered on 12/18/19at 15:05; Start 12/18/19 at 15:00; Stop 12/18/19 at 15:01; Status DC Morphine Sulfate (Morphine Sulfate) 4 mg 1X ONCE IV Last administered on 12/18/19at 15:05; Start 12/18/19 at 15:00; Stop 12/18/19 at 15:01; Status DC Ondansetron HCl (Zofran) 4 mg 1X ONCE IVP Last administered on 12/18/19at 15:04; Start 12/18/19 at 15:00; Stop 12/18/19 at 15:01; Status DC Cefazolin Sodium (Ancef) 1 gm 1X ONCE IVP Last administered on 12/18/19at 15:51; Start 12/18/19 at 15:15; Stop 12/18/19 at 15:16; Status DC Hydromorphone HCl (Dilaudid) 1 mg 1X ONCE IV Last administered on 12/18/19at 15:51; Start 12/18/19 at 15:30; Stop 12/18/19 at 15:31; Status DC Ondansetron HCl (Zofran) 4 mg PRN Q8HRS PRN IV NAUSEA/VOMITING; Start 12/18/19 at 16:15; Stop 12/19/19 at 16:14 Morphine Sulfate (Morphine Sulfate) 4 mg PRN Q2HR PRN IV PAIN Last administered on 12/18/19at 21:17; Start 12/18/19 at 16:15; Stop 12/19/19 at 16:14 Sodium Chloride (Normal Saline Flush) 3 ml QSHIFT PRN IV AFTER MEDS AND BLOOD DRAWS; Start 12/18/19 at 17:00 Sodium Chloride 1,000 ml @ 100 mls/hr Q10H IV Last administered on 12/19/19at 03:34; Start 12/18/19 at 16:50 Ondansetron HCl (Zofran) 4 mg PRN Q4HRS PRN IV NAUSEA/VOMITING Last administered on 12/19/19at 06:09; Start 12/18/19 at 17:00 Zolpidem Tartrate (Ambien) 5 mg PRN QHS PRN PO INSOMNIA; Start 12/18/19 at 17:00 Acetaminophen (Tylenol) 650 mg PRN Q4HRS PRN PO TEMP OVER 100.4F OR MILD PAIN; Start 12/18/19 at 17:00 Acetaminophen (Tylenol Supp) 650 mg PRN Q4HRS PRN [place] TEMP OVER 100.4F OR MILD PAIN; Start 12/18/19 at 17:00 Sodium Monofluorophosphate (Fleet Adult) 133 ml PRN DAILY PRN [place] CONSTIPATION; Start 12/18/19 at 17:00 Docusate Sodium (Colace) 100 mg PRN BID PRN PO HARD STOOLS; Start 12/18/19 at 17:00 Albuterol Sulfate (Ventolin Neb Soln) 2.5 mg PRN Q4HRS PRN NEB SHORTNESS OF BREATH; Start 12/18/19 at 17:00 Guaifenesin (Robitussin) 200 mg PRN Q4HRS PRN PO COUGH; Start 12/18/19 at 17:00 Lorazepam (Ativan) 0.5 mg PRN Q4HRS PRN PO ANXIETY / AGITATION; Start 12/18/19 at 17:00 Hydromorphone HCl (Dilaudid) 0.6 mg PRN Q3HRS PRN IV SEVERE PAIN 7-10 Last administered on 12/19/19at 03:41; Start 12/18/19 at 17:00 Enoxaparin Sodium (Lovenox 40mg Syringe) 40 mg Q24H SQ Last administered on 12/18/19at 21:17; Start 12/18/19 at 18:00 Ceftriaxone Sodium (Rocephin) 1 gm Q24H IVP Last administered on 12/18/19at 21:15; Start 12/18/19 at 21:00 Docusate Sodium (Colace) 100 mg BID PO Last administered on 12/18/19at 21:25; Start 12/18/19 at 21:00 Influenza Virus Vaccine Quadrival (Fluzone Quad Syringe) 0.5 ml ONCE ONCE VAX IM ; Start 12/19/19 at 09:00; Stop 12/19/19 at 09:01 Active Scripts Active Miralax (Polyethylene Glycol 3350) 17 Gm Powd.pack 1 Packet PO DAILY Fleet Enema (Na Phos,M-B/Na Phos,Di-Ba) 133 Ml Enema 1 Each RC ONCE Magnesium Citrate 296 Ml Solution 296 Ml PO ONCE Ibuprofen 800 Mg Tablet 800 Mg PO PRN Q6HRS PRN Colace (Docusate Sodium) 100 Mg Capsule 100 Mg PO BID Oxycodone-Acetaminophen 5-325 (Oxycodone Hcl/Acetaminophen) 1 Each Tablet 2 Tab PO PRN Q4HRS PRN Allergies Allergies: Coded Allergies: No Known Drug Allergies (Unverified , 06/25/17) ROS General: No: Chills, Other (fevers) PSYCHOLOGICAL ROS: No: Anxiety, Depression Eyes: No Blurry vision, No Double vision HEENT: No: Heacaches, Sore Throat Hematological and Lymphatic: No: Bleeding Problems, Blood Clots Respiratory: No: Cough, SOB with excertion Cardiovascular: No Chest Pain, No Palpitations Gastrointestinal: Yes Other (see hpi) Genitourinary: No Dysuria, No Hematuria Musculoskeletal: No Joint Pain, No Muscle Pain Neurological: No Impaired Coord/balance, No Numbness/Tingling Skin: No Pruritus, No Rash Physical Exam General: Alert, Oriented X3, Cooperative HEENT: Atraumatic, PERRLA Lungs: Clear to auscultation, Normal air movement Heart: Regular rate, Normal S1, Normal S2 Abdomen: Soft, Other (RUQ TTP) Extremities: No clubbing, No cyanosis Skin: No rashes, No breakdown Neuro: Normal gait, Normal speech Psych/Mental Status: Mental status NL, Mood NL MUSCULOSKELETAL: No deformity, No swelling Vitals VITALS Vital Signs Date Time Temp Pulse Resp B/P (MAP) Pulse Ox O2 Delivery O2 Flow Rate FiO2 12/19/19 07:00 98.5 110 18 127/73 (91) 90 Room Air 98.5 Labs Labs Laboratory Tests Test 12/18/19 14:00 12/18/19 14:40 12/18/19 17:58 12/19/19 03:38 Urine Collection Type Unknown Urine Color Yellow Urine Clarity Clear Urine pH 5.0 (<5.0-8.0) Urine Specific [place] 1.020 (1.000-1.030) Urine Protein Negative mg/dL (NEG-TRACE) Urine Glucose (UA) Negative mg/dL (NEG) Urine Ketones (Stick) Negative mg/dL (NEG) Urine Blood Negative (NEG) Urine Nitrite Negative (NEG) Urine Bilirubin Negative (NEG) Urine Urobilinogen Dipstick 0.2 mg/dL (0.2 mg/dL) Urine Leukocyte Esterase Large (NEG) Urine RBC Occ /HPF (0-2) Urine WBC >40 /HPF (0-4) Urine Bacteria Few /HPF (0-FEW) Urine Mucus Mod /LPF White Blood Count 9.3 x10^3/uL (4.0-11.0) 10.4 x10^3/uL (4.0-11.0) Red Blood Count 4.42 x10^6/uL (3.50-5.40) 4.18 x10^6/uL (3.50-5.40) Hemoglobin 13.4 g/dL (12.0-15.5) 12.5 g/dL (12.0-15.5) Hematocrit 39.0 % (36.0-47.0) 37.4 % (36.0-47.0) Mean Corpuscular Volume 88 fL (79-100) 89 fL (79-100) Mean Corpuscular Hemoglobin 30 pg (25-35) 30 pg (25-35) Mean Corpuscular Hemoglobin Concent 34 g/dL (31-37) 34 g/dL (31-37) Red Cell Distribution Width 15.5 % (11.5-14.5) 15.8 % (11.5-14.5) Platelet Count 263 x10^3/uL (140-400) 249 x10^3/uL (140-400) Neutrophils (%) (Auto) 78 % (31-73) 84 % (31-73) Lymphocytes (%) (Auto) 13 % (24-48) 8 % (24-48) Monocytes (%) (Auto) 7 % (0-9) 7 % (0-9) Eosinophils (%) (Auto) 1 % (0-3) 0 % (0-3) Basophils (%) (Auto) 0 % (0-3) 0 % (0-3) Neutrophils # (Auto) 7.2 x10^3/uL (1.8-7.7) 8.7 x10^3/uL (1.8-7.7) Lymphocytes # (Auto) 1.2 x10^3/uL (1.0-4.8) 0.9 x10^3/uL (1.0-4.8) Monocytes # (Auto) 0.7 x10^3/uL (0.0-1.1) 0.7 x10^3/uL (0.0-1.1) Eosinophils # (Auto) 0.1 x10^3/uL (0.0-0.7) 0.0 x10^3/uL (0.0-0.7) Basophils # (Auto) 0.0 x10^3/uL (0.0-0.2) 0.0 x10^3/uL (0.0-0.2) Sodium Level 140 mmol/L (136-145) Potassium Level 3.9 mmol/L (3.5-5.1) Chloride Level 103 mmol/L (98-107) Carbon Dioxide Level 28 mmol/L (21-32) Anion Gap 9 (6-14) Blood Urea Nitrogen 10 mg/dL (7-20) Creatinine 0.9 mg/dL (0.6-1.0) Estimated GFR (Cockcroft-Gault) 65.5 BUN/Creatinine Ratio 11 (6-20) Glucose Level 118 mg/dL (70-99) Calcium Level 9.1 mg/dL (8.5-10.1) Total Bilirubin 0.4 mg/dL (0.2-1.0) Aspartate Amino Transf (AST/SGOT) 21 U/L (15-37) Alanine Aminotransferase (ALT/SGPT) 26 U/L (14-59) Alkaline Phosphatase 115 U/L (46-116) Total Protein 7.8 g/dL (6.4-8.2) Albumin 4.1 g/dL (3.4-5.0) Albumin/Globulin Ratio 1.1 (1.0-1.7) Lipase 107 U/L (73-393) SARS-CoV-2 Antigen (Rapid) Negative (NEGATIVE) Test 12/19/19 03:58 Sodium Level 140 mmol/L (136-145) Potassium Level 3.7 mmol/L (3.5-5.1) Chloride Level 104 mmol/L (98-107) Carbon Dioxide Level 27 mmol/L (21-32) Anion Gap 9 (6-14) Blood Urea Nitrogen 10 mg/dL (7-20) Creatinine 0.7 mg/dL (0.6-1.0) Estimated GFR (Cockcroft-Gault) 87.5 Glucose Level 119 mg/dL (70-99) Calcium Level 8.7 mg/dL (8.5-10.1) Laboratory Tests Test 12/18/19 14:00 12/18/19 14:40 12/18/19 17:58 12/19/19 03:38 Urine Collection Type Unknown Urine Color Yellow Urine Clarity Clear Urine pH 5.0 (<5.0-8.0) Urine Specific [place] 1.020 (1.000-1.030) Urine Protein Negative mg/dL (NEG-TRACE) Urine Glucose (UA) Negative mg/dL (NEG) Urine Ketones (Stick) Negative mg/dL (NEG) Urine Blood Negative (NEG) Urine Nitrite Negative (NEG) Urine Bilirubin Negative (NEG) Urine Urobilinogen Dipstick 0.2 mg/dL (0.2 mg/dL) Urine Leukocyte Esterase Large (NEG) Urine RBC Occ /HPF (0-2) Urine WBC >40 /HPF (0-4) Urine Bacteria Few /HPF (0-FEW) Urine Mucus Mod /LPF White Blood Count 9.3 x10^3/uL (4.0-11.0) 10.4 x10^3/uL (4.0-11.0) Red Blood Count 4.42 x10^6/uL (3.50-5.40) 4.18 x10^6/uL (3.50-5.40) Hemoglobin 13.4 g/dL (12.0-15.5) 12.5 g/dL (12.0-15.5) Hematocrit 39.0 % (36.0-47.0) 37.4 % (36.0-47.0) Mean Corpuscular Volume 88 fL (79-100) 89 fL (79-100) Mean Corpuscular Hemoglobin 30 pg (25-35) 30 pg (25-35) Mean Corpuscular Hemoglobin Concent 34 g/dL (31-37) 34 g/dL (31-37) Red Cell Distribution Width 15.5 % (11.5-14.5) 15.8 % (11.5-14.5) Platelet Count 263 x10^3/uL (140-400) 249 x10^3/uL (140-400) Neutrophils (%) (Auto) 78 % (31-73) 84 % (31-73) Lymphocytes (%) (Auto) 13 % (24-48) 8 % (24-48) Monocytes (%) (Auto) 7 % (0-9) 7 % (0-9) Eosinophils (%) (Auto) 1 % (0-3) 0 % (0-3) Basophils (%) (Auto) 0 % (0-3) 0 % (0-3) Neutrophils # (Auto) 7.2 x10^3/uL (1.8-7.7) 8.7 x10^3/uL (1.8-7.7) Lymphocytes # (Auto) 1.2 x10^3/uL (1.0-4.8) 0.9 x10^3/uL (1.0-4.8) Monocytes # (Auto) 0.7 x10^3/uL (0.0-1.1) 0.7 x10^3/uL (0.0-1.1) Eosinophils # (Auto) 0.1 x10^3/uL (0.0-0.7) 0.0 x10^3/uL (0.0-0.7) Basophils # (Auto) 0.0 x10^3/uL (0.0-0.2) 0.0 x10^3/uL (0.0-0.2) Sodium Level 140 mmol/L (136-145) Potassium Level 3.9 mmol/L (3.5-5.1) Chloride Level 103 mmol/L (98-107) Carbon Dioxide Level 28 mmol/L (21-32) Anion Gap 9 (6-14) Blood Urea Nitrogen 10 mg/dL (7-20) Creatinine 0.9 mg/dL (0.6-1.0) Estimated GFR (Cockcroft-Gault) 65.5 BUN/Creatinine Ratio 11 (6-20) Glucose Level 118 mg/dL (70-99) Calcium Level 9.1 mg/dL (8.5-10.1) Total Bilirubin 0.4 mg/dL (0.2-1.0) Aspartate Amino Transf (AST/SGOT) 21 U/L (15-37) Alanine Aminotransferase (ALT/SGPT) 26 U/L (14-59) Alkaline Phosphatase 115 U/L (46-116) Total Protein 7.8 g/dL (6.4-8.2) Albumin 4.1 g/dL (3.4-5.0) Albumin/Globulin Ratio 1.1 (1.0-1.7) Lipase 107 U/L (73-393) SARS-CoV-2 Antigen (Rapid) Negative (NEGATIVE) Test 12/19/19 03:58 Sodium Level 140 mmol/L (136-145) Potassium Level 3.7 mmol/L (3.5-5.1) Chloride Level 104 mmol/L (98-107) Carbon Dioxide Level 27 mmol/L (21-32) Anion Gap 9 (6-14) Blood Urea Nitrogen 10 mg/dL (7-20) Creatinine 0.7 mg/dL (0.6-1.0) Estimated GFR (Cockcroft-Gault) 87.5 Glucose Level 119 mg/dL (70-99) Calcium Level 8.7 mg/dL (8.5-10.1) Assessment/Plan Assessment/Plan Symptomatic cholelithiasis lap russel tomorrow clears today, npo at WALLY SAWYER MD 12/19/19 0954: CONSULT Assessment/Plan Assessment/Plan Agree with above MAMADOU BERTRAND APRN Dec 19, 2019 08:39 WALLY POWELL MD Dec 19, 2019 09:54
[2019-12-19] MEDS ORDERED: FLU VACC QS 2020-21(6MOS+)/PF 0.5 ML SYRINGE. VAX IM ONE (09:00)
[2019-12-19] MEDS: DOCUSATE SODIUM 100 MG CAPSULE. PO SCH ×2 (10:28→19:56)
[2019-12-19] MEDS: ACETAMINOPHEN 325 MG TABLET. PO PRN ×2 (10:50→19:55)
[2019-12-19 11:00] VITALS: BP 130/74
--- NOTE | 2019-12-19 11:38 | PDOC ---
[employer] PROGRESS NOTE Date of Service DOS: DATE: 12/19/19 TIME: 11:27 Chief Complaint Chief Complaint abdominal pain History of Present Illness History of Present Illness Pt seen and examined. SELENA RN DW clin management Family member bedside. Scheduled surgery tmrw am. Vitals/I&O Vitals/I&O: Vital Signs Date Time Temp Pulse Resp B/P (MAP) Pulse Ox O2 Delivery O2 Flow Rate FiO2 12/19/19 11:00 98.2 102 18 130/74 (92) 92 Room Air 98.2 I & O 12/18/19 12/18/19 12/19/19 15:00 23:00 07:00 Intake Total 240 ml Balance 240 ml Physical Exam General: Alert, Oriented X3, Cooperative, No acute distress Heart: Regular rate, Normal S1, Normal S2, No murmurs Lungs: Clear Abdomen: Normal bowel sounds, Soft, No masses, Other Extremities: No clubbing, No cyanosis, No edema, Normal pulses, No tenderness/swelling Skin: No rashes, No breakdown, No significant lesion Labs Labs: Laboratory Tests Test 12/18/19 14:00 12/18/19 14:40 12/18/19 17:58 12/19/19 03:38 Urine Collection Type Unknown Urine Color Yellow Urine Clarity Clear Urine pH 5.0 (<5.0-8.0) Urine Specific [place] 1.020 (1.000-1.030) Urine Protein Negative mg/dL (NEG-TRACE) Urine Glucose (UA) Negative mg/dL (NEG) Urine Ketones (Stick) Negative mg/dL (NEG) Urine Blood Negative (NEG) Urine Nitrite Negative (NEG) Urine Bilirubin Negative (NEG) Urine Urobilinogen Dipstick 0.2 mg/dL (0.2 mg/dL) Urine Leukocyte Esterase Large (NEG) Urine RBC Occ /HPF (0-2) Urine WBC >40 /HPF (0-4) Urine Bacteria Few /HPF (0-FEW) Urine Mucus Mod /LPF White Blood Count 9.3 x10^3/uL (4.0-11.0) 10.4 x10^3/uL (4.0-11.0) Red Blood Count 4.42 x10^6/uL (3.50-5.40) 4.18 x10^6/uL (3.50-5.40) Hemoglobin 13.4 g/dL (12.0-15.5) 12.5 g/dL (12.0-15.5) Hematocrit 39.0 % (36.0-47.0) 37.4 % (36.0-47.0) Mean Corpuscular Volume 88 fL (79-100) 89 fL (79-100) Mean Corpuscular Hemoglobin 30 pg (25-35) 30 pg (25-35) Mean Corpuscular Hemoglobin Concent 34 g/dL (31-37) 34 g/dL (31-37) Red Cell Distribution Width 15.5 % (11.5-14.5) 15.8 % (11.5-14.5) Platelet Count 263 x10^3/uL (140-400) 249 x10^3/uL (140-400) Neutrophils (%) (Auto) 78 % (31-73) 84 % (31-73) Lymphocytes (%) (Auto) 13 % (24-48) 8 % (24-48) Monocytes (%) (Auto) 7 % (0-9) 7 % (0-9) Eosinophils (%) (Auto) 1 % (0-3) 0 % (0-3) Basophils (%) (Auto) 0 % (0-3) 0 % (0-3) Neutrophils # (Auto) 7.2 x10^3/uL (1.8-7.7) 8.7 x10^3/uL (1.8-7.7) Lymphocytes # (Auto) 1.2 x10^3/uL (1.0-4.8) 0.9 x10^3/uL (1.0-4.8) Monocytes # (Auto) 0.7 x10^3/uL (0.0-1.1) 0.7 x10^3/uL (0.0-1.1) Eosinophils # (Auto) 0.1 x10^3/uL (0.0-0.7) 0.0 x10^3/uL (0.0-0.7) Basophils # (Auto) 0.0 x10^3/uL (0.0-0.2) 0.0 x10^3/uL (0.0-0.2) Sodium Level 140 mmol/L (136-145) Potassium Level 3.9 mmol/L (3.5-5.1) Chloride Level 103 mmol/L (98-107) Carbon Dioxide Level 28 mmol/L (21-32) Anion Gap 9 (6-14) Blood Urea Nitrogen 10 mg/dL (7-20) Creatinine 0.9 mg/dL (0.6-1.0) Estimated GFR (Cockcroft-Gault) 65.5 BUN/Creatinine Ratio 11 (6-20) Glucose Level 118 mg/dL (70-99) Calcium Level 9.1 mg/dL (8.5-10.1) Total Bilirubin 0.4 mg/dL (0.2-1.0) Aspartate Amino Transf (AST/SGOT) 21 U/L (15-37) Alanine Aminotransferase (ALT/SGPT) 26 U/L (14-59) Alkaline Phosphatase 115 U/L (46-116) Total Protein 7.8 g/dL (6.4-8.2) Albumin 4.1 g/dL (3.4-5.0) Albumin/Globulin Ratio 1.1 (1.0-1.7) Lipase 107 U/L (73-393) SARS-CoV-2 Antigen (Rapid) Negative (NEGATIVE) Test 12/19/19 03:58 Sodium Level 140 mmol/L (136-145) Potassium Level 3.7 mmol/L (3.5-5.1) Chloride Level 104 mmol/L (98-107) Carbon Dioxide Level 27 mmol/L (21-32) Anion Gap 9 (6-14) Blood Urea Nitrogen 10 mg/dL (7-20) Creatinine 0.7 mg/dL (0.6-1.0) Estimated GFR (Cockcroft-Gault) 87.5 Glucose Level 119 mg/dL (70-99) Calcium Level 8.7 mg/dL (8.5-10.1) Review of Systems Review of Systems: Denies SOB or OWENS. Assessment and Plan Assessmemt and Plan Problems Medical Problems: (1) Symptomatic cholelithiasis Status: Acute 2. full code 3. DVT prophylaxis 4. Labs 5. Fluids Comment Review of Relevant I have reviewed the following items virgen (where applicable) has been applied. Medications: Current Medications Medications (Trade) Dose Ordered Sig/[place] Route PRN Reason Start Time Stop Time Status Last Admin Dose Admin Famotidine (Pepcid Vial) 20 mg 1X ONCE IVP 12/18/19 15:00 12/18/19 15:01 DC 12/18/19 15:05 Morphine Sulfate (Morphine Sulfate) 4 mg 1X ONCE IV 12/18/19 15:00 12/18/19 15:01 DC 12/18/19 15:05 Ondansetron HCl (Zofran) 4 mg 1X ONCE IVP 12/18/19 15:00 12/18/19 15:01 DC 12/18/19 15:04 Cefazolin Sodium (Ancef) 1 gm 1X ONCE IVP 12/18/19 15:15 12/18/19 15:16 DC 12/18/19 15:51 Hydromorphone HCl (Dilaudid) 1 mg 1X ONCE IV 12/18/19 15:30 12/18/19 15:31 DC 12/18/19 15:51 Ondansetron HCl (Zofran) 4 mg PRN Q8HRS PRN IV NAUSEA/VOMITING 12/18/19 16:15 12/19/19 16:14 12/19/19 10:38 Morphine Sulfate (Morphine Sulfate) 4 mg PRN Q2HR PRN IV PAIN 12/18/19 16:15 12/19/19 16:14 12/18/19 21:17 Sodium Chloride 1,000 ml @ 100 mls/hr Q10H IV 12/18/19 16:50 12/19/19 03:34 Ondansetron HCl (Zofran) 4 mg PRN Q4HRS PRN IV NAUSEA/VOMITING 12/18/19 17:00 12/19/19 06:09 Acetaminophen (Tylenol) 650 mg PRN Q4HRS PRN PO TEMP OVER 100.4F OR MILD PAIN 12/18/19 17:00 12/19/19 10:50 Hydromorphone HCl (Dilaudid) 0.6 mg PRN Q3HRS PRN IV SEVERE PAIN 7-10 12/18/19 17:00 12/19/19 03:41 Enoxaparin Sodium (Lovenox 40mg Syringe) 40 mg Q24H SQ 12/18/19 18:00 12/18/19 21:17 Ceftriaxone Sodium (Rocephin) 1 gm Q24H IVP 12/18/19 21:00 12/18/19 21:15 Docusate Sodium (Colace) 100 mg BID PO 12/18/19 21:00 12/19/19 10:28 Influenza Virus Vaccine Quadrival (Fluzone Quad Syringe) 0.5 ml ONCE ONCE VAX IM 12/19/19 09:00 12/19/19 09:01 DC 12/19/19 10:30 Justifications for Admission Other Justification RUBIA BARAJAS III DO Dec 19, 2019 11:38
[2019-12-19 15:00] VITALS: BP 130/70
[2019-12-19 19:00] VITALS: BP 121/66
[2019-12-19] MEDS: ENOXAPARIN 40 MG/0.4 ML SYRINGE. SQ SCH (19:04)
[2019-12-19] MEDS: cefTRIAXone IV Push 1 GM VIAL. IVP SCH (19:56)
[2019-12-19 23:00] VITALS: BP 110/56
[2019-12-20] VITALS (9 sets, daily range): BP systolic 120–134; BP diastolic 65–78
[2019-12-20 06:04] LABS: BASO % 0 % (0-3); EOS # 0.2 x10^3/uL (0.0-0.7); EOS % 2 % (0-3); HEMATOCRIT 33.8 % (36.0-47.0); HEMOGLOBIN 11.1 g/dL (12.0-15.5); LYMPH # 1.2 x10^3/uL (1.0-4.8); LYMPH % 11 % (24-48); MEAN CORPUSCULAR HEMOGLOBIN 30 pg (25-35); MEAN CORPUSCULAR HGB CONC 33 g/dL (31-37); MEAN CORPUSCULAR VOLUME 90 fL (79-100); MONO # 1.2 x10^3/uL (0.0-1.1); MONO % 11 % (0-9); NEUT # 8.7 x10^3/uL (1.8-7.7); NEUT % 76 % (31-73); PLATELET COUNT 206 x10^3/uL (140-400); RED BLOOD COUNT 3.76 x10^6/uL (3.50-5.40); RED CELL DISTRIBUTION WIDTH 16.2 % (11.5-14.5); WHITE BLOOD COUNT 11.4 x10^3/uL (4.0-11.0)
[2019-12-20 06:29] LABS: CALCIUM 8.5 mg/dL (8.5-10.1); CREATININE 0.6 mg/dL (0.6-1.0); GFR 104.6; POTASSIUM 3.5 mmol/L (3.5-5.1)
[2019-12-20] MEDS ORDERED: MORPHINE SULFATE 2 MG/ML VIAL. IV PRN (07:00)
[2019-12-20] MEDS ORDERED: fentaNYL PF VIAL 100 MCG/2 ML VIAL IV PRN ×2 (07:00)
[2019-12-20] MEDS ORDERED: IV RINGERS,LACTATED 1000ML 1,000 ML IV SCH (07:00)
[2019-12-20] MEDS ORDERED: PROCHLORPERAZINE 10 MG/2 ML VIAL. IV PRN (07:00)
[2019-12-20] MEDS ORDERED: HYDROmorphone 2 MG/ML VIAL IV PRN (07:00)
--- NOTE | 2019-12-20 07:07 | NUR ---
Patient left room to PACU at 0640 by bed.
[2019-12-20] MEDS ORDERED: fentaNYL PF VIAL 100 MCG/2 ML VIAL ONE ×3 (07:09→09:54)
[2019-12-20] MEDS ORDERED: MIDAZOLAM HCL/PF 2 MG/2 ML VIAL. ONE (07:10)
[2019-12-20] MEDS ORDERED: ROCURONIUM 50 MG/5 ML VIAL. ONE (07:10)
--- NOTE | 2019-12-20 07:10 | NUR ---
Patient's was notified that patient has been picked up to go to surgery and is on his way to the hospital.
[2019-12-20] MEDS ORDERED: IOHEXOL 300 MG/ML 50 ML VIAL. ONE (07:11)
[2019-12-20] MEDS ORDERED: BUPIVACAINE MPF 0.5% 30 ML VIAL. ONE (07:11)
[2019-12-20] MEDS ORDERED: ONDANSETRON PF 4 MG/2 ML VIAL. ONE (07:11)
[2019-12-20] MEDS ORDERED: LIDOCAINE 2% PF 5 ML VIAL. ONE (07:11)
[2019-12-20] MEDS ORDERED: SURGICEL HEMOSTAT 4X8 EACH. ONE (07:11)
[2019-12-20] MEDS ORDERED: PROPOFOL 10 MG/ML (20ML) VIAL. IV ONE (07:11)
[2019-12-20] MEDS ORDERED: DEXAMETHASONE SOD PHOS 4 MG/ML VIAL ONE (07:11)
[2019-12-20] MEDS ORDERED: GLYCOPYRROLATE 1 MG/5 ML VIAL. ONE (08:44)
[2019-12-20] MEDS ORDERED: NEOSTIGMINE METHYLSULFATE 5 MG/5 ML SYRINGE. ONE (08:44)
[2019-12-20] MEDS: IV NORMAL SALINE 1000ML BAG 1,000 ML IV SCH ×2 (08:50→18:50)
--- NOTE | 2019-12-20 08:55 | RAD ---
CHOLANGIOGRAM INTRAOPERATIVE History: Cholangiogram Comparison: None. Findings: Interpretation is made of submitted images only, exam performed by different physician. Reported fluoroscopy time 0.2 minutes. 3 low resolution intraprocedural views from a cholangiogram are submitted. There has been introduction of contrast into the cystic duct. No defined round filling defect is identified in the common bile duct. There is contrast in the duodenum. Impression: 1. No filling defect is identified of the common bile duct. Electronically signed by: Frank Birch MD (12/20/2019 8:52 AM) [id number]
[2019-12-20] MEDS: DOCUSATE SODIUM 100 MG CAPSULE. PO SCH ×2 (09:00→20:44)
--- NOTE | 2019-12-20 09:08 | PDOC4 ---
Operative Note Operative Note Operative Note: Preoperative Diagnosis: Acute cholecystitis Postoperative Diagnosis: Same Procedure: Laparoscopic cholecystectomy with intraoperative cholangiogram Surgeons: Bra[facility] [employer] Department Chair: Shawn Carranza Anesthesia: Gen. Estimated Blood Loss: 100 mL Specimen: Gallbladder to pathology Drains: None Complications: None Indications: The patient is a 54-year-old female who was admitted with clinical and radiographic evidence of acute cholecystitis. Surgical treatment was offered by means of a laparoscopic cholecystectomy. The risks of surgery were discussed which include bleeding, infection, bile duct injury, bile leak, pain, the potential for additional surgeries or procedures. The patient understands and would like to proceed. Description: The patient was taken to the operating room and laid supine on the operating table. General anesthesia was performed. The abdomen was prepped with ChloraPrep and draped in a standard surgical fashion. A small infraumbilical incision was made with a scalpel. The Veress needle was then inserted and a pneumoperitoneum was then created. A 5 mm trocar was then inserted and the laparoscope was introduced. In the upper midabdomen an 11 mm trocar was inserted and in the right upper quadrant two 5 mm trochars were inserted. The gallbladder was distended and tense with acute inflammatory change consistent with acute cholecystitis. Approximately 60 cc of bilious fluid was aspirated providing gallbladder decompression. The gallbladder was retracted cephalad. The cystic duct was dissected free from surrounding tissu es. One clip was placed on the duct near the gallbladder junction. An opening was made in the duct and a cholangiocatheter placed within and secured with a clip. Using contrast dye and fluoroscopy an intraoperative cholangiogram was performed that appeared unremarkable. The clip and catheter were then withdrawn. Three clips were placed on the cystic duct and it was divided. The cystic artery was then identified, dissected free, doubly clipped and divided as well. The gallbladder was then mobilized away from the liver with cautery. A Surgicel pack was placed on the gallbladder fossa to assist with hemostasis. The gallbladder was then placed in an endoscopic bag and extracted at the superior trocar site. The fascia there was closed with interrupted 0 PDS sutures. All blood and irrigation fluid was suctioned and hemostasis was good. The remaining ports were removed and the pneumoperitoneum was relieved. The skin incisions were closed using 4-0 Monocryl suture. Steri-Strips and dressings were then applied. The patient tolerated the procedure well and was sent to the recovery room in stable condition. At the end of the case all counts were correct. WALLY POWELL MD Dec 20, 2019 09:08
[2019-12-20] MEDS ORDERED: oxyCODONE/APAP 5/325 1 TAB TABLET PO PRN (09:15)
[2019-12-20] MEDS: HYDROmorphone 2 MG/ML VIAL IV PRN ×2 (11:47→17:39)
--- NOTE | 2019-12-20 12:19 | PDOC ---
[employer] PROGRESS NOTE Date of Service DOS: DATE: 12/20/19 TIME: 12:16 Chief Complaint Chief Complaint abdominal pain History of Present Illness History of Present Illness 12/20/2019 Pt seen and examined. SELENA RN DW clin management Family member bedside. 4 Trocar sites CDI. Vitals/I&O Vitals/I&O: Vital Signs Date Time Temp Pulse Resp B/P (MAP) Pulse Ox O2 Delivery O2 Flow Rate FiO2 12/20/19 11:47 Room Air 12/20/19 11:00 98.2 78 16 126/69 (88) 98 98.2 12/20/19 10:10 3 I & O 12/19/19 12/19/19 12/20/19 15:00 23:00 07:00 Intake Total 120 ml Balance 120 ml Physical Exam General: Alert, Oriented X3, Cooperative, No acute distress Heart: Regular rate, Normal S1, Normal S2, No murmurs Lungs: Clear Abdomen: Normal bowel sounds, Soft, No masses, Other Extremities: No clubbing, No cyanosis, No edema, Normal pulses, No tenderness/swelling Skin: No rashes, No breakdown, No significant lesion Labs Labs: Laboratory Tests Test 12/20/19 04:35 12/20/19 04:55 White Blood Count 11.4 x10^3/uL (4.0-11.0) Red Blood Count 3.76 x10^6/uL (3.50-5.40) Hemoglobin 11.1 g/dL (12.0-15.5) Hematocrit 33.8 % (36.0-47.0) Mean Corpuscular Volume 90 fL (79-100) Mean Corpuscular Hemoglobin 30 pg (25-35) Mean Corpuscular Hemoglobin Concent 33 g/dL (31-37) Red Cell Distribution Width 16.2 % (11.5-14.5) Platelet Count 206 x10^3/uL (140-400) Neutrophils (%) (Auto) 76 % (31-73) Lymphocytes (%) (Auto) 11 % (24-48) Monocytes (%) (Auto) 11 % (0-9) Eosinophils (%) (Auto) 2 % (0-3) Basophils (%) (Auto) 0 % (0-3) Neutrophils # (Auto) 8.7 x10^3/uL (1.8-7.7) Lymphocytes # (Auto) 1.2 x10^3/uL (1.0-4.8) Monocytes # (Auto) 1.2 x10^3/uL (0.0-1.1) Eosinophils # (Auto) 0.2 x10^3/uL (0.0-0.7) Basophils # (Auto) 0.0 x10^3/uL (0.0-0.2) Sodium Level 141 mmol/L (136-145) Potassium Level 3.5 mmol/L (3.5-5.1) Chloride Level 106 mmol/L (98-107) Carbon Dioxide Level 29 mmol/L (21-32) Anion Gap 6 (6-14) Blood Urea Nitrogen 6 mg/dL (7-20) Creatinine 0.6 mg/dL (0.6-1.0) Estimated GFR (Cockcroft-Gault) 104.6 Glucose Level 90 mg/dL (70-99) Calcium Level 8.5 mg/dL (8.5-10.1) Review of Systems Review of Systems: No digital clubbing, cyanosis, or SOB noted Assessment and Plan Assessmemt and Plan Problems Medical Problems: (1) Symptomatic cholelithiasis Status: Acute 2. Wound care 3. PRN pain 4. Hope to advance diet 5. 4 trocar sites CDI 6. DVT prophylaxis 7. Labs 8. Full code Comment Review of Relevant I have reviewed the following items virgen (where applicable) has been applied. Medications: Current Medications Medications (Trade) Dose Ordered Sig/Gary Route PRN Reason Start Time Stop Time Status Last Admin Dose Admin Fentanyl Citrate (Fentanyl 2ml Vial) 50 mcg PRN Q5MIN PRN IV MODERATE TO SEVERE PAIN 12/20/19 07:00 12/21/19 06:59 12/20/19 10:04 Iohexol (Omnipaque 300 Mg/ml) 50 ml STK-MED ONCE .ROUTE 12/20/19 07:11 12/20/19 07:11 DC 12/20/19 08:20 Cellulose (Surgicel Hemostat 4x8) 1 each STK-MED ONCE .ROUTE 12/20/19 07:11 12/20/19 07:11 DC 12/20/19 08:38 Bupivacaine HCl (Sensorcaine Mpf 0.5%) 30 ml STK-MED ONCE .ROUTE 12/20/19 07:11 12/20/19 07:12 DC 12/20/19 08:20 Cefazolin Sodium/ Dextrose 50 ml @ 100 mls/hr 1X PREOP PRN IV PRIOR TO PROCEDURE 12/20/19 06:00 12/21/19 05:59 12/20/19 07:41 Justifications for Admission Other Justification RUBIA BARAJAS III DO Dec 20, 2019 12:19
[2019-12-20] MEDS: ENOXAPARIN 40 MG/0.4 ML SYRINGE. SQ SCH (18:16)
[2019-12-20] MEDS: cefTRIAXone IV Push 1 GM VIAL. IVP SCH (20:45)
[2019-12-20] MEDS: oxyCODONE/APAP 5/325 1 TAB TABLET PO PRN (22:04)
[2019-12-21 03:00] VITALS: BP 125/77
[2019-12-21 04:28] LABS: BASO % 0 % (0-3); EOS % 0 % (0-3); HEMATOCRIT 33.4 % (36.0-47.0); HEMOGLOBIN 11.1 g/dL (12.0-15.5); LYMPH # 1.3 x10^3/uL (1.0-4.8); LYMPH % 13 % (24-48); MEAN CORPUSCULAR HEMOGLOBIN 30 pg (25-35); MEAN CORPUSCULAR HGB CONC 33 g/dL (31-37); MEAN CORPUSCULAR VOLUME 90 fL (79-100); MONO # 1.1 x10^3/uL (0.0-1.1); MONO % 11 % (0-9); NEUT # 7.6 x10^3/uL (1.8-7.7); NEUT % 75 % (31-73); PLATELET COUNT 239 x10^3/uL (140-400); RED BLOOD COUNT 3.73 x10^6/uL (3.50-5.40); RED CELL DISTRIBUTION WIDTH 16.1 % (11.5-14.5); WHITE BLOOD COUNT 10.1 x10^3/uL (4.0-11.0)
[2019-12-21 04:44] LABS: CALCIUM 8.8 mg/dL (8.5-10.1); CREATININE 0.7 mg/dL (0.6-1.0); GFR 87.5; POTASSIUM 3.6 mmol/L (3.5-5.1)
[2019-12-21] MEDS: IV NORMAL SALINE 1000ML BAG 1,000 ML IV SCH (04:50)
[2019-12-21] MEDS: oxyCODONE/APAP 5/325 1 TAB TABLET PO PRN ×3 (05:51→12:50)
[2019-12-21 07:00] VITALS: BP 128/75
[2019-12-21] MEDS: DOCUSATE SODIUM 100 MG CAPSULE. PO SCH ×2 (08:16→14:14)
--- NOTE | 2019-12-21 09:45 | PDOC ---
MAMADOU BERTRAND [employer] 12/21/19 0945: SURGICAL PROGRESS NOTE DATE: 12/21/19 TIME: 09:43 Subjective minimal pain tolerated breakfast Vital Signs Vital Signs Date Time Temp Pulse Resp B/P (MAP) Pulse Ox O2 Delivery O2 Flow Rate FiO2 12/21/19 07:00 98.4 83 20 128/75 (92) 93 Room Air 98.4 12/21/19 03:00 2.0 I&O Intake and Output 12/21/19 07:00 Intake Total 1550 ml Output Total 325 ml Balance 1225 ml Intake Oral 250 ml IV Total 1300 ml Output Urine Total 225 ml Estimated Blood Loss 100 ml # Voids 3 General: Alert, Oriented X3, Cooperative Abdomen: Soft, Other (ND, lap site ttp) Labs Laboratory Tests Test 12/20/19 04:35 12/20/19 04:55 12/21/19 04:00 White Blood Count 11.4 x10^3/uL (4.0-11.0) 10.1 x10^3/uL (4.0-11.0) Red Blood Count 3.76 x10^6/uL (3.50-5.40) 3.73 x10^6/uL (3.50-5.40) Hemoglobin 11.1 g/dL (12.0-15.5) 11.1 g/dL (12.0-15.5) Hematocrit 33.8 % (36.0-47.0) 33.4 % (36.0-47.0) Mean Corpuscular Volume 90 fL (79-100) 90 fL (79-100) Mean Corpuscular Hemoglobin 30 pg (25-35) 30 pg (25-35) Mean Corpuscular Hemoglobin Concent 33 g/dL (31-37) 33 g/dL (31-37) Red Cell Distribution Width 16.2 % (11.5-14.5) 16.1 % (11.5-14.5) Platelet Count 206 x10^3/uL (140-400) 239 x10^3/uL (140-400) Neutrophils (%) (Auto) 76 % (31-73) 75 % (31-73) Lymphocytes (%) (Auto) 11 % (24-48) 13 % (24-48) Monocytes (%) (Auto) 11 % (0-9) 11 % (0-9) Eosinophils (%) (Auto) 2 % (0-3) 0 % (0-3) Basophils (%) (Auto) 0 % (0-3) 0 % (0-3) Neutrophils # (Auto) 8.7 x10^3/uL (1.8-7.7) 7.6 x10^3/uL (1.8-7.7) Lymphocytes # (Auto) 1.2 x10^3/uL (1.0-4.8) 1.3 x10^3/uL (1.0-4.8) Monocytes # (Auto) 1.2 x10^3/uL (0.0-1.1) 1.1 x10^3/uL (0.0-1.1) Eosinophils # (Auto) 0.2 x10^3/uL (0.0-0.7) 0.0 x10^3/uL (0.0-0.7) Basophils # (Auto) 0.0 x10^3/uL (0.0-0.2) 0.0 x10^3/uL (0.0-0.2) Sodium Level 141 mmol/L (136-145) 140 mmol/L (136-145) Potassium Level 3.5 mmol/L (3.5-5.1) 3.6 mmol/L (3.5-5.1) Chloride Level 106 mmol/L (98-107) 104 mmol/L (98-107) Carbon Dioxide Level 29 mmol/L (21-32) 30 mmol/L (21-32) Anion Gap 6 (6-14) 6 (6-14) Blood Urea Nitrogen 6 mg/dL (7-20) 10 mg/dL (7-20) Creatinine 0.6 mg/dL (0.6-1.0) 0.7 mg/dL (0.6-1.0) Estimated GFR (Cockcroft-Gault) 104.6 87.5 Glucose Level 90 mg/dL (70-99) 103 mg/dL (70-99) Calcium Level 8.5 mg/dL (8.5-10.1) 8.8 mg/dL (8.5-10.1) Laboratory Tests Test 12/21/19 04:00 White Blood Count 10.1 x10^3/uL (4.0-11.0) Red Blood Count 3.73 x10^6/uL (3.50-5.40) Hemoglobin 11.1 g/dL (12.0-15.5) Hematocrit 33.4 % (36.0-47.0) Mean Corpuscular Volume 90 fL (79-100) Mean Corpuscular Hemoglobin 30 pg (25-35) Mean Corpuscular Hemoglobin Concent 33 g/dL (31-37) Red Cell Distribution Width 16.1 % (11.5-14.5) Platelet Count 239 x10^3/uL (140-400) Neutrophils (%) (Auto) 75 % (31-73) Lymphocytes (%) (Auto) 13 % (24-48) Monocytes (%) (Auto) 11 % (0-9) Eosinophils (%) (Auto) 0 % (0-3) Basophils (%) (Auto) 0 % (0-3) Neutrophils # (Auto) 7.6 x10^3/uL (1.8-7.7) Lymphocytes # (Auto) 1.3 x10^3/uL (1.0-4.8) Monocytes # (Auto) 1.1 x10^3/uL (0.0-1.1) Eosinophils # (Auto) 0.0 x10^3/uL (0.0-0.7) Basophils # (Auto) 0.0 x10^3/uL (0.0-0.2) Sodium Level 140 mmol/L (136-145) Potassium Level 3.6 mmol/L (3.5-5.1) Chloride Level 104 mmol/L (98-107) Carbon Dioxide Level 30 mmol/L (21-32) Anion Gap 6 (6-14) Blood Urea Nitrogen 10 mg/dL (7-20) Creatinine 0.7 mg/dL (0.6-1.0) Estimated GFR (Cockcroft-Gault) 87.5 Glucose Level 103 mg/dL (70-99) Calcium Level 8.8 mg/dL (8.5-10.1) Problem List Problems Medical Problems: (1) Symptomatic cholelithiasis Status: Acute Assessment/Plan s/p russel can DC home FU 2 weeks Justicifation of Admission Dx: Justifications for Admission: Justification of Admission Dx: Yes Comments: cholecystitis WALLY POWELL MD 12/21/19 1441: SURGICAL PROGRESS NOTE Assessment/Plan Agree with above MAMADOU BERTRAND APRN Dec 21, 2019 09:45 WALLY POWELL MD Dec 21, 2019 14:41
[2019-12-21] MEDS ORDERED: OXYC1TAB15 PO (09:48)
[2019-12-21] MEDS ORDERED: DOCU-153 PO (09:48)
[2019-12-21 11:00] VITALS: BP 125/70
--- NOTE | 2019-12-21 11:59 | PDOC ---
[employer] PROGRESS NOTE Date of Service DOS: DATE: 12/21/19 TIME: 11:55 Chief Complaint Chief Complaint abdominal pain Hyperlipidemia Migraine GERD Osteoarthritis Hernia Repair History of Present Illness History of Present Illness 12/21/2019 Pt seen and examined SELENA WALTERS residential case managerspa manager member bedside 4 Trocar sites CDI 12/20/2019 Pt seen and examined. SELENA WALTERS clin management Family member bedside. 4 Trocar sites CDI. Vitals/I&O Vitals/I&O: Vital Signs Date Time Temp Pulse Resp B/P (MAP) Pulse Ox O2 Delivery O2 Flow Rate FiO2 12/21/19 11:00 98.6 86 20 125/70 (88) 94 Room Air 98.6 12/21/19 03:00 2.0 I & O 12/20/19 12/20/19 12/21/19 15:00 23:00 07:00 Intake Total 1300 ml 250 ml Output Total 325 ml Balance 975 ml 250 ml Physical Exam General: Alert, Oriented X3, Cooperative Heart: Regular rate, Normal S1, Normal S2, No murmurs Lungs: Clear Abdomen: Soft, Other (ND, lap site ttp) Extremities: No clubbing, No cyanosis, No edema, Normal pulses, No tenderness/swelling Skin: No rashes, No breakdown, No significant lesion Labs Labs: Laboratory Tests Test 12/21/19 04:00 White Blood Count 10.1 x10^3/uL (4.0-11.0) Red Blood Count 3.73 x10^6/uL (3.50-5.40) Hemoglobin 11.1 g/dL (12.0-15.5) Hematocrit 33.4 % (36.0-47.0) Mean Corpuscular Volume 90 fL (79-100) Mean Corpuscular Hemoglobin 30 pg (25-35) Mean Corpuscular Hemoglobin Concent 33 g/dL (31-37) Red Cell Distribution Width 16.1 % (11.5-14.5) Platelet Count 239 x10^3/uL (140-400) Neutrophils (%) (Auto) 75 % (31-73) Lymphocytes (%) (Auto) 13 % (24-48) Monocytes (%) (Auto) 11 % (0-9) Eosinophils (%) (Auto) 0 % (0-3) Basophils (%) (Auto) 0 % (0-3) Neutrophils # (Auto) 7.6 x10^3/uL (1.8-7.7) Lymphocytes # (Auto) 1.3 x10^3/uL (1.0-4.8) Monocytes # (Auto) 1.1 x10^3/uL (0.0-1.1) Eosinophils # (Auto) 0.0 x10^3/uL (0.0-0.7) Basophils # (Auto) 0.0 x10^3/uL (0.0-0.2) Sodium Level 140 mmol/L (136-145) Potassium Level 3.6 mmol/L (3.5-5.1) Chloride Level 104 mmol/L (98-107) Carbon Dioxide Level 30 mmol/L (21-32) Anion Gap 6 (6-14) Blood Urea Nitrogen 10 mg/dL (7-20) Creatinine 0.7 mg/dL (0.6-1.0) Estimated GFR (Cockcroft-Gault) 87.5 Glucose Level 103 mg/dL (70-99) Calcium Level 8.8 mg/dL (8.5-10.1) Review of Systems Review of Systems: No signs of cyanosis, digital clubbing, or SOB. Assessment and Plan Assessmemt and Plan Problems Medical Problems: (1) Symptomatic cholelithiasis Status: Acute 2.abdominal pain 3. Hyperlipidemia 4.Migraine 5.GERD 6.Osteoarthritis 7.Hernia Repair Plan: Discharge today Comment Review of Relevant I have reviewed the following items virgen (where applicable) has been applied. Justifications for Admission Other Justification RUBIA BARAJAS III, DO Dec 21, 2019 11:58
[2019-12-21] MEDS ORDERED: HYDR-2759 PO (14:04)
--- NOTE | 2019-12-22 12:07 | PATHOLOGY ---
[facility] Accession Number: [id number] . 01 Material submitted: . gallbladder - GALLBLADDER . 01 Clinical history: . SYMPTOMATIC CHOLELITHIASIS . 02 Diagnosis: Gallbladder, excision: - Acute necrotizing cholecystitis. - Lithiasis (obstructing cystic duct). - Adenomyomatosis. . Lymph node, pericystic duct region, excision: - Reactive follicular lymphoid hyperplasia, with sinus histioctosis. (MLK:mirian; 12/21/2019) QMS 12/22/2019 1108 Local . 02 Electronically signed: . Liliana Erazo MD, Pathologist NPI- [id number] . 01 Gross description: . Received in formalin labeled "Alma, [place], gallbladder" is an intact cholecystectomy specimen measuring 12.3 x 4.5 x 3.5 cm. The serosa is acosta-red with diffuse areas of hemorrhage. A possible lymph node is identified adjacent to the cystic neck, measuring 1.1 cm in greatest dimension. The specimen is opened to reveal red-green and hemorrhagic mucosa with diffuse nodularity. The average wall thickness is 0.8 cm. Multiple green-black calculi are present within the gallbladder, measuring in aggregate 5.3 x 4.4 x 2.3 cm. One calculus is present within the cystic neck, obstructing the cystic duct. Structural Layout Worker sections are submitted as follows: A1 fundus and body and the cystic duct margin A2 possible lymph node A3 additional sections of nodular areas (SK; 12/20/2019) SYC/SYC 12/20/2019 1846 Local . 02 Pathologist provided ICD-10: K80.00 . 02 CPT . 435693 Specimen Comment: A courtesy copy of this report has been sent to [phone], [phone] Specimen Comment: [phone], Specimen Comment: Report sent to ,DR ROMERO / DR GILMAN Performed at: [address], [place] [id number] MD Misbah Coon MD Phone: [phone] Performed at: [facility] [address], [place] [id number] MD Bakari Berg MD Phone: [phone]
== END 2019-12-21 15:00 | disposition home or self-care (01) | DRG 419 ==
LOC: ER 13:49 → 4 NORTH 16:00
PROVIDERS: ADMIT Family Medicine; ATTEND Family Medicine
PROC: BF131ZZ Fluoroscopy of Gallbladder and Bile Ducts using Low Osmolar Contrast (ICD-10-PCS; 2019-12-20)
PROC: 0FT44ZZ Resection of Gallbladder, Percutaneous Endoscopic Approach (ICD-10-PCS; principal; 2019-12-20 07:30)
DX: K80.00 Calculus of gallbladder with acute cholecystitis without obstruction (principal); K82.A1 Gangrene of gallbladder in cholecystitis; Z20.828 Contact with and (suspected) exposure to other viral communicable diseases; K21.9 Gastro-esophageal reflux disease without esophagitis; M06.9 Rheumatoid arthritis, unspecified; K82.8 Other specified diseases of gallbladder; E78.5 Hyperlipidemia, unspecified; G43.909 Migraine, unspecified, not intractable, without status migrainosus; Z90.710 Acquired absence of both cervix and uterus; Z82.49 Family history of ischemic heart disease and other diseases of the circulatory system
CPT/HCPCS: 36415; 74300; 76705; 80048; 80053; 81001; 83690; 85025; 87086; 87426; 88304; 90471; 90686; 96374; 96375; 99285; A7015; J0690; J0696; J1100; J1170; J1650; J2250; J2270; J2405; J2704; J2710; J3010; J3490; J7030; J7120; Q9967; 97535-GO; G0378; U0003-CS